=== PATIENT | male | born 1940 | race Caucasian/White ===

== ENCOUNTER 2018-02-16 21:45 | Inpatient (IN) | payer MEDICARE ==
--- NOTE | 2018-02-17 00:16 | ER Document Report ---
ED General - General Chief Complaint: Fever Stated Complaint: FEVER,WEAKNESS Time Seen by Provider: 02/17/18 00:03 Notes: Patient is a 77-year-old male that comes emergency department for chief complaint of weakness and fever. Patient states he has been weak since yesterday, son at bedside confirms this, son states that tonight patient had a "glazed overlook" and he took his temperature and found it was 101 F, this was about 4 hours prior to arrival. No cough, vomiting, patient has had 3 loose stools today, nonbloody, he denies abdominal pain. He denies headache or chest pain. Son states patient has acted a little bit confused and sluggish today but generally speaking he is still oriented. Past medical history includes on cephalexin prophylaxis for urinary tract infections, has BPH, also has vascular dementia, type 2 diabetes, CAD, NC with stents, and is on Plavix. TRAVEL OUTSIDE OF THE [place] IN LAST 30 DAYS: No - Related Data Allergies/Adverse Reactions: No Known Allergies Allergy (Unverified 02/17/18 03:58) Past Medical History - General Information source: Patient, Relative - Social History Smoking Status: Never Smoker Frequency of alcohol use: None Drug Abuse: None Lives with: Family Family History: Reviewed & Not Pertinent - Past Medical History Cardiac Medical History: Reports: Hx Coronary Artery Disease, Hx Heart Attack, Hx Hypertension Endocrine Medical History: Reports: Hx Diabetes Mellitus Type 2, Hx Hypothyroidism Renal/ Medical History: Reports: Hx Benign Prostatic Hyperplasia Past Surgical History: Reports: Hx Cardiac Catheterization - Immunizations Hx Diphtheria, Pertussis, Tetanus Vaccination: Yes Review of Systems - Review of Systems Constitutional: See HPI EENT: No symptoms reported Cardiovascular: No symptoms reported Respiratory: No symptoms reported Gastrointestinal: No symptoms reported Genitourinary: See HPI Male Genitourinary: No symptoms reported Musculoskeletal: No symptoms reported Skin: No symptoms reported Hematologic/Lymphatic: No symptoms reported Neurological/Psychological: No symptoms reported Physical Exam - Vital signs Vitals: Temp Pulse BP Pulse Ox 99.0 F 91 158/94 H 95 02/16/18 22:48 02/16/18 22:48 02/16/18 22:48 02/16/18 22:48 Interpretation: Normal - General General appearance: Appears well In distress: None - HEENT Head: Normocephalic, Atraumatic Eyes: Normal Conjunctiva: Normal Extraocular movements intact: Yes Eyelashes: Normal Pupils: PERRL Mouth/Lips: Normal Mucous membranes: Normal Pharynx: Normal Neck: Normal - Respiratory Respiratory status: No respiratory distress Chest status: Nontender Breath sounds: Normal Chest palpation: Normal - Cardiovascular Rhythm: Regular. No: Tachycardia Heart sounds: Normal auscultation, S1 appreciated, S2 appreciated Murmur: No - Abdominal Inspection: Normal Distension: No distension Bowel sounds: Normal Tenderness: Nontender. No: Tender, Guarding Organomegaly: No organomegaly - Back Back: Normal, Nontender - Extremities General upper extremity: Normal inspection, Nontender, Normal color, Normal ROM , Normal temperature General lower extremity: Normal inspection, Nontender, Normal color, Normal ROM , Normal temperature, Normal weight bearing. No: Lolis's sign - Neurological Neuro grossly intact: Yes Cognition: Normal Orientation: AAOx4 [place] Coma Scale Eye Opening: Spontaneous [place] Coma Scale Verbal: Oriented [place] Coma Scale Motor: Obeys Commands Lillian Coma Scale Total: 15 Speech: Normal Cranial nerves: Normal Cerebellar coordination: Normal Motor strength normal: LUE, RUE, LLE, RLE Additional motor exam normals: Equal inoculator Sensory: Normal - Psychological Associated symptoms: Normal affect, Normal mood - Skin Skin Temperature: Warm Skin Moisture: Dry Skin Color: Normal Course - Re-evaluation Re-evalutation: Patient is well-appearing on exam, he is oriented, no neurological deficits. Vital signs are unremarkable. Clear lungs, soft abdomen. Chest x-ray showing possible pneumonia, however patient has no pneumonia symptoms at all. Lactic acid is not elevated, no hypoxia, CBC unremarkable, chemistry unremarkable. Urinalysis does show urinary tract infection, culture placed, blood culture placed. Giving Levaquin. Discussed with patient and son at bedside. They state that whenever patient gets these infections along with a fever that he has to be admitted to the hospital or he does not improve. Patient is already on Keflex prophylaxis. They state the patient is too weak to walk and is very unsteady with a fall risk , patient was ambulated and he is unsteady on his feet although he can perform this with very close persistent assistance. They state they are uncomfortable going home at this time. Because of fever at home, UTI despite prophylaxis, questionable pneumonia, and unsteady gait patient will be discussed with hospitalist. Discussed with Dr. Loaiza, internal medicine, patient will be admitted to telemetry observation. - Vital Signs Vital signs: Temp Pulse Resp BP Pulse Ox 98.4 F 96 16 142/74 H 99 02/17/18 05:50 02/17/18 06:18 02/17/18 05:50 02/17/18 05:50 02/17/18 05:50 - Laboratory Result Diagrams: 02/17/18 06:03 02/17/18 06:03 Laboratory results interpreted by me: 02/17/18 02/17/18 02/17/18 00:20 00:20 01:23 Seg Neutrophils % 78.4 H Lymphocytes % 11.7 L Sodium 145.4 H Chloride 110 H BUN 21 H Creatinine 1.45 H Est GFR ( Amer) 57 L Est GFR (Non-Af Amer) 47 L Glucose 218 H Creatine Kinase 51 L Urine Protein 100 H Urine Glucose (UA) 50 H Urine Blood MODERATE H Ur Leukocyte Esterase LARGE H Discharge - Discharge Clinical Impression: Weakness Urinary tract infection Qualifiers: Urinary tract infection type: site unspecified Hematuria presence: without hematuria Qualified Code(s): N39.0 - Urinary tract infection, site not specified Fever Qualifiers: Fever type: unspecified Qualified Code(s): R50.9 - Fever, unspecified Condition: Stable Disposition: ADMITTED OBSERVATION Admitting Provider: Hospitalist Unit Admitted: Telemetry
[2018-02-17 00:37] LABS: ABSOLUTE EOSINOPHILS # (AUTO) 0.1 10^3/uL (0.0-0.6); ABSOLUTE LYMPHOCYTES (AUTO) 0.9 10^3/uL (0.5-4.7); ABSOLUTE MONOCYTES (AUTO) 0.6 10^3/uL (0.1-1.4); ABSOLUTE NEUT (AUTO) 5.9 10^3/uL (1.7-8.2); BASOPHILS % (AUTO) 0.4 % (0-2); EOSINOPHILS % (AUTO) 1.2 % (0-6); HEMATOCRIT 46.5 % (37.9-51.0); HEMOGLOBIN 15.6 g/dL (13.5-17.0); LYMPHOCYTES % (AUTO) 11.7 % (13-45); MEAN CORPUSCULAR HEMOGLOBIN 28.5 pg (27.0-33.4); MEAN CORPUSCULAR HGB CONC 33.6 g/dL (32.0-36.0); MEAN CORPUSCULAR VOLUME 85 fl (80-97); MONOCYTES % (AUTO) 8.3 % (3-13); PLATELET COUNT 328 10^3/uL (150-450); RED BLOOD COUNT 5.48 10^6/uL (4.35-5.55); RED CELL DISTRIBUTION WIDTH 13.6 % (11.5-14.0); SEGMENTED NEUTROPHILS % (AUTO) 78.4 % (42-78); TOTAL CELLS COUNTED % (AUTO) 100 %; WHITE BLOOD COUNT 7.5 10^3/uL (4.0-10.5)
[2018-02-17 00:44] LABS: INTERNATIONAL RATION (INR) 0.95; PROTHROMBIN TIME 13.4 SEC (11.4-15.4)
[2018-02-17 00:57] LABS: ALANINE AMINOTRANSFERASE 27 U/L (21-72); ALBUMIN 3.7 g/dL (3.5-5.0); ALKALINE PHOSPHATASE 93 U/L (38-126); ANION GAP 9 (5-19); ASPARTATE AMINO TRANSFERASE 18 U/L (17-59); BILIRUBIN,DIRECT 0.3 mg/dL (0.0-0.4); BILIRUBIN,TOTAL 0.3 mg/dL (0.2-1.3); BLOOD UREA NITROGEN 21 mg/dL (7-20); CARBON DIOXIDE 26 mmol/L (22-30); CHLORIDE 110 mmol/L (98-107); CREATINE KINASE 51 U/L (55-170); GLUCOSE 218 mg/dL (75-110); POTASSIUM 4.2 mmol/L (3.6-5.0); SODIUM 145.4 mmol/L (137-145); TOTAL PROTEIN 7.3 g/dL (6.3-8.2)
[2018-02-17 01:16] LABS: VENOUS BLOOD BASE EXCESS -0.9 mmol/L; VENOUS BLOOD HCO3 25.2 mmol/L (20-32); VENOUS BLOOD PCO2 47.4 mmHg (35-63); VENOUS BLOOD PH 7.34 (7.30-7.42)
--- NOTE | 2018-02-17 01:25 | RADIOLOGY REPORT (SQ) ---
EXAM DESCRIPTION: CT HEAD WITHOUT CLINICAL HISTORY: 77 years Male, confusion, on plavix COMPARISON: None. TECHNIQUE: No contrast. Coronal and sagittal reformat. This exam was performed according to our departmental dose-optimization program, which includes automated exposure control, adjustment of the mA and/or kV according to patient size and/or use of iterative reconstruction technique. FINDINGS: No hemorrhage or infarct. No mass, mass effect, or midline shift. Atherosclerosis. Mild cerebral volume loss. Moderate confluent white matter microangiopathy pattern.Brain and extra-axial structures appear otherwise intact. IMPRESSION: No acute findings.
[2018-02-17 01:26] LABS: CREATINE KINASE MB 0.32 ng/mL (<4.55)
[2018-02-17 01:27] LABS: TROPONIN I < 0.012 ng/mL
--- NOTE | 2018-02-17 01:32 | RADIOLOGY REPORT (SQ) ---
EXAM DESCRIPTION: CHEST SINGLE VIEW CLINICAL HISTORY: 77 years Male, fever, weakness COMPARISON: None. NUMBER OF VIEWS/TECHNIQUE: 1/AP LIMITATIONS: None. FINDINGS: Small patchiness of the lower right lung field and small right upper lobar patchiness. Normal cardiac silhouette. Mild osteoarthritis. IMPRESSION: Small multifocal right-sided pneumonia. Recommend CR/CT surveillance including at 7-12 weeks following initiation of clinically warranted therapy.
[2018-02-17 01:38] LABS: APPEARANCE,URINE CLOUDY; BILIRUBIN,URINE NEGATIVE (NEGATIVE); COLOR,URINE YELLOW; GLUCOSE, URINE 50 mg/dL (NEGATIVE); KETONES,URINE NEGATIVE (NEGATIVE); LEUKOCYTE ESTERASE,URINE LARGE (NEGATIVE); NITRITE,URINE NEGATIVE (NEGATIVE); PROTEIN,URINE 100 mg/dL (NEGATIVE); URINE SPECIFIC GRAVITY 1.012; UROBILINOGEN,URINE NEGATIVE mg/dL (<2.0)
[2018-02-17] MEDS ORDERED: LEVOFLOXACIN 500 MG/D5W RTU 500 MG/100 ML RTUPB IV ONE (02:20)
[2018-02-17] MEDS ORDERED: ONDANSETRON HCL INJ/PF 4 MG/2 ML SDV IV PRN (03:49)
[2018-02-17] MEDS ORDERED: ACETAMINOPHEN 325 MG TABLET PO PRN (03:49)
[2018-02-17] MEDS ORDERED: IPRATROPIUM/ALBUTEROL 0.5-2.5 MG/3 ML AMPUL NEB PRN (03:49)
[2018-02-17] MEDS ORDERED: GLUCAGON,HUMAN RECOMB 1 MG INJ IM PRN (03:53)
[2018-02-17] MEDS ORDERED: DEXTROSE 40% GEL 15 GM TUBE PO PRN ×2 (03:53)
[2018-02-17] MEDS ORDERED: DEXTROSE 50%-WATER 25 GM/50 ML DISP.SYRIN IV PRN ×2 (03:53)
[2018-02-17] MEDS ORDERED: HYDRALAZINE HCL INJ/PF 20 MG/1 ML SDV ONE (04:01)
[2018-02-17] MEDS: HYDRALAZINE HCL INJ/PF 20 MG/1 ML SDV IV PRN (04:16)
[2018-02-17] MEDS: NORMAL SALINE 1000 ML 1,000 ML IV SCH ×2 (04:17→12:25)
[2018-02-17 06:21] LABS: ABSOLUTE EOSINOPHILS # (AUTO) 0.1 10^3/uL (0.0-0.6); ABSOLUTE LYMPHOCYTES (AUTO) 1.2 10^3/uL (0.5-4.7); ABSOLUTE MONOCYTES (AUTO) 0.7 10^3/uL (0.1-1.4); ABSOLUTE NEUT (AUTO) 4.5 10^3/uL (1.7-8.2); BASOPHILS % (AUTO) 0.7 % (0-2); EOSINOPHILS % (AUTO) 1.4 % (0-6); HEMATOCRIT 42.7 % (37.9-51.0); HEMOGLOBIN 14.3 g/dL (13.5-17.0); MEAN CORPUSCULAR HEMOGLOBIN 28.1 pg (27.0-33.4); MEAN CORPUSCULAR HGB CONC 33.6 g/dL (32.0-36.0); MEAN CORPUSCULAR VOLUME 84 fl (80-97); PLATELET COUNT 285 10^3/uL (150-450); RED BLOOD COUNT 5.11 10^6/uL (4.35-5.55); RED CELL DISTRIBUTION WIDTH 13.4 % (11.5-14.0); SEGMENTED NEUTROPHILS % (AUTO) 68.9 % (42-78); TOTAL CELLS COUNTED % (AUTO) 100 %; WHITE BLOOD COUNT 6.6 10^3/uL (4.0-10.5)
[2018-02-17 06:38] LABS: ANION GAP 10 (5-19); BLOOD UREA NITROGEN 20 mg/dL (7-20); CALCIUM 8.7 mg/dL (8.4-10.2); CARBON DIOXIDE 26 mmol/L (22-30); CHLORIDE 108 mmol/L (98-107); GLUCOSE 162 mg/dL (75-110); SODIUM 143.6 mmol/L (137-145)
[2018-02-17] MEDS: HEPARIN SOD (PORCINE) 5,000 UNIT/ML 1 ML SYRINGE SUBCUT SCH ×3 (06:45→21:19)
--- NOTE | 2018-02-17 08:03 | EKG REPORT ---
SEVERITY:- BORDERLINE ECG - SINUS RHYTHM ATRIAL PREMATURE COMPLEX BORDERLINE T WAVE ABNORMALITIES BORDERLINE PROLONGED QT INTERVAL : Confirmed by: Reginaldo Luke MD 17-Feb-2018 08:02:59
[2018-02-17] MEDS: INSULIN LISPRO 100 UNIT/ML 3 ML VIAL SUBCUT PRN ×3 (12:18→21:47)
[2018-02-18] MEDS: HEPARIN SOD (PORCINE) 5,000 UNIT/ML 1 ML SYRINGE SUBCUT SCH ×3 (05:56→23:06)
[2018-02-18 06:09] LABS: ABSOLUTE BASOPHILS # (AUTO) 0.1 10^3/uL (0.0-0.2); ABSOLUTE EOSINOPHILS # (AUTO) 0.1 10^3/uL (0.0-0.6); ABSOLUTE LYMPHOCYTES (AUTO) 1.3 10^3/uL (0.5-4.7); ABSOLUTE NEUT (AUTO) 5.8 10^3/uL (1.7-8.2); BASOPHILS % (AUTO) 0.6 % (0-2); EOSINOPHILS % (AUTO) 1.7 % (0-6); HEMATOCRIT 40.4 % (37.9-51.0); HEMOGLOBIN 13.7 g/dL (13.5-17.0); LYMPHOCYTES % (AUTO) 16.2 % (13-45); MEAN CORPUSCULAR HEMOGLOBIN 28.6 pg (27.0-33.4); MEAN CORPUSCULAR HGB CONC 33.8 g/dL (32.0-36.0); MEAN CORPUSCULAR VOLUME 85 fl (80-97); MONOCYTES % (AUTO) 11.7 % (3-13); PLATELET COUNT 265 10^3/uL (150-450); RED BLOOD COUNT 4.78 10^6/uL (4.35-5.55); RED CELL DISTRIBUTION WIDTH 13.5 % (11.5-14.0); SEGMENTED NEUTROPHILS % (AUTO) 69.8 % (42-78); TOTAL CELLS COUNTED % (AUTO) 100 %; WHITE BLOOD COUNT 8.3 10^3/uL (4.0-10.5)
[2018-02-18 06:26] LABS: ANION GAP 10 (5-19); BLOOD UREA NITROGEN 18 mg/dL (7-20); CALCIUM 8.5 mg/dL (8.4-10.2); CARBON DIOXIDE 22 mmol/L (22-30); CHLORIDE 109 mmol/L (98-107); GLUCOSE 156 mg/dL (75-110); POTASSIUM 4.2 mmol/L (3.6-5.0); SODIUM 140.9 mmol/L (137-145)
[2018-02-18] MEDS: INSULIN LISPRO 100 UNIT/ML 3 ML VIAL SUBCUT PRN ×2 (12:34→23:06)
--- NOTE | 2018-02-18 18:31 | PDOC PROGRESS REPORT ---
Subjective Progress Note for:: 02/18/18 Subjective:: Patient admitted in the early mornings of 02/17/18 with UTI. Patient reports feeling still very weak. He has low-grade fever, has some urinary frequency, no dysuria, no abdominal pain, no nausea or vomiting. He has cough, minimally productive. Reason For Visit: UTI Physical Exam Vital Signs: Temp Pulse Resp BP Pulse Ox 99.5 F 73 16 142/74 H 95 02/18/18 15:35 02/18/18 15:35 02/18/18 15:35 02/18/18 15:35 02/18/18 15:35 Intake & Output 02/17/18 02/18/18 02/19/18 06:59 06:59 06:59 Intake Total 2832 621 Output Total 200 Balance 2632 621 GEN: NAD, well-developed, well-nourished CV: RRR, NL S1S2 LUNGS: CTA bilaterally ABDOMEN Soft, NT, +BS EXTERMITIES: No e/c/c NEURO: Alert, oriented to name, place Results Laboratory Results: 02/18/18 05:30 02/18/18 05:30 02/18/18 02/18/18 05:30 05:30 WBC 8.3 RBC 4.78 Hgb 13.7 Hct 40.4 MCV 85 MCH 28.6 MCHC 33.8 RDW 13.5 Plt Count 265 Seg Neutrophils % 69.8 Lymphocytes % 16.2 Monocytes % 11.7 Eosinophils % 1.7 Basophils % 0.6 Absolute Neutrophils 5.8 Absolute Lymphocytes 1.3 Absolute Monocytes 1.0 Absolute Eosinophils 0.1 Absolute Basophils 0.1 Sodium 140.9 Potassium 4.2 Chloride 109 H Carbon Dioxide 22 Anion Gap 10 BUN 18 Creatinine 1.36 H Est GFR ( Amer) > 60 Est GFR (Non-Af Amer) 51 L Glucose 156 H Calcium 8.5 Impressions: Chest X-Ray 02/17/18 00:13 IMPRESSION: Small multifocal right-sided pneumonia. Recommend CR/CT surveillance including at 7-12 weeks following initiation of clinically warranted therapy. Head CT 02/17/18 00:15 IMPRESSION: No acute findings. Assessment & Plan - Diagnosis (1) Urinary tract infection Qualifiers: Urinary tract infection type: site unspecified Hematuria presence: without hematuria Qualified Code(s): N39.0 - Urinary tract infection, site not specified Is this a current diagnosis for this admission?: Yes Plan: Urinalysis positive, white blood cells, although patient elderly. Will start Rocephin 1 g IV daily. Continue gentle IV fluid. (2) Community acquired bacterial pneumonia Is this a current diagnosis for this admission?: Yes Plan: This is suspected on recent chest x-ray above. Will add Zithromax to Rocephin to cover possible atypical in this elderly male. Follow-up blood cultures result. (3) Hypertension Is this a current diagnosis for this admission?: Yes Plan: Stable. (4) Weakness Is this a current diagnosis for this admission?: Yes Plan: Secondary to UTI and possible pneumonia. Will need PT/OT evaluation if continues.
[2018-02-18] MEDS ORDERED: CEFTRIAXONE 1 GM/D5W RTU 1 GM/50 ML RTUPB IV SCH (19:00)
[2018-02-18] MEDS: NORMAL SALINE 1000 ML 1,000 ML IV PRN (19:05)
[2018-02-18] MEDS ORDERED: CEFTRIAXONE SODIUM 1,000 MG in NORMAL SALINE 100 ML IV ONE (19:30)
[2018-02-18] MEDS: AZITHROMYCIN 500 MG in DEXTROSE 5%-WATER 250 ML IV SCH (23:07)
[2018-02-19 05:10] LABS: ABSOLUTE BASOPHILS # (AUTO) 0.1 10^3/uL (0.0-0.2); ABSOLUTE EOSINOPHILS # (AUTO) 0.2 10^3/uL (0.0-0.6); ABSOLUTE LYMPHOCYTES (AUTO) 1.6 10^3/uL (0.5-4.7); ABSOLUTE MONOCYTES (AUTO) 0.9 10^3/uL (0.1-1.4); ABSOLUTE NEUT (AUTO) 4.1 10^3/uL (1.7-8.2); BASOPHILS % (AUTO) 0.7 % (0-2); EOSINOPHILS % (AUTO) 3.3 % (0-6); HEMATOCRIT 39.1 % (37.9-51.0); HEMOGLOBIN 13.2 g/dL (13.5-17.0); LYMPHOCYTES % (AUTO) 23.9 % (13-45); MEAN CORPUSCULAR HEMOGLOBIN 28.2 pg (27.0-33.4); MEAN CORPUSCULAR HGB CONC 33.7 g/dL (32.0-36.0); MEAN CORPUSCULAR VOLUME 84 fl (80-97); MONOCYTES % (AUTO) 12.9 % (3-13); PLATELET COUNT 228 10^3/uL (150-450); RED BLOOD COUNT 4.67 10^6/uL (4.35-5.55); RED CELL DISTRIBUTION WIDTH 13.9 % (11.5-14.0); SEGMENTED NEUTROPHILS % (AUTO) 59.2 % (42-78); TOTAL CELLS COUNTED % (AUTO) 100 %; WHITE BLOOD COUNT 6.8 10^3/uL (4.0-10.5)
[2018-02-19 05:28] LABS: ANION GAP 9 (5-19); BLOOD UREA NITROGEN 24 mg/dL (7-20); CALCIUM 8.3 mg/dL (8.4-10.2); CARBON DIOXIDE 22 mmol/L (22-30); CHLORIDE 113 mmol/L (98-107); GLUCOSE 80 mg/dL (75-110); POTASSIUM 4.1 mmol/L (3.6-5.0); SODIUM 143.9 mmol/L (137-145)
[2018-02-19] MEDS: HEPARIN SOD (PORCINE) 5,000 UNIT/ML 1 ML SYRINGE SUBCUT SCH ×3 (05:44→21:31)
[2018-02-19] MEDS: NORMAL SALINE 1000 ML 1,000 ML IV PRN (12:00)
[2018-02-19] MEDS: CEFTRIAXONE SODIUM 1,000 MG in NORMAL SALINE 100 ML IV SCH (17:12)
--- NOTE | 2018-02-19 19:23 | PDOC PROGRESS REPORT ---
Subjective Progress Note for:: 02/19/18 Subjective:: Patient admitted in the early mornings of 02/17/18 with UTI and possible pneumonia. Patient reports feeling much better today. No more fever, urinary frequency has improved, no dysuria, no abdominal pain, no nausea or vomiting. He has cough, minimally productive. Reason For Visit: UTI Physical Exam Vital Signs: Temp Pulse Resp BP Pulse Ox 98.0 F 58 L 20 149/79 H 95 02/19/18 15:32 02/19/18 15:32 02/19/18 15:32 02/19/18 15:32 02/19/18 15:32 Intake & Output 02/18/18 02/19/18 02/20/18 06:59 06:59 06:59 Intake Total 2832 1811 1510 Output Total 200 Balance 2632 1811 1510 GEN: NAD, well-developed, well-nourished CV: RRR, NL S1S2 LUNGS: CTA bilaterally ABDOMEN Soft, NT, +BS EXTERMITIES: No e/c/c NEURO: Alert, oriented to name, place, no acute weakness Results Laboratory Results: 02/19/18 04:17 02/19/18 04:17 02/19/18 02/19/18 04:17 04:17 WBC 6.8 RBC 4.67 Hgb 13.2 L Hct 39.1 MCV 84 MCH 28.2 MCHC 33.7 RDW 13.9 Plt Count 228 Seg Neutrophils % 59.2 Lymphocytes % 23.9 Monocytes % 12.9 Eosinophils % 3.3 Basophils % 0.7 Absolute Neutrophils 4.1 Absolute Lymphocytes 1.6 Absolute Monocytes 0.9 Absolute Eosinophils 0.2 Absolute Basophils 0.1 Sodium 143.9 Potassium 4.1 Chloride 113 H Carbon Dioxide 22 Anion Gap 9 BUN 24 H Creatinine 1.49 H Est GFR ( Amer) 55 L Est GFR (Non-Af Amer) 46 L Glucose 80 Calcium 8.3 L Impressions: Chest X-Ray 02/17/18 00:13 IMPRESSION: Small multifocal right-sided pneumonia. Recommend CR/CT surveillance including at 7-12 weeks following initiation of clinically warranted therapy. Head CT 02/17/18 00:15 IMPRESSION: No acute findings. Assessment & Plan - Diagnosis (1) Urinary tract infection Qualifiers: Urinary tract infection type: site unspecified Hematuria presence: without hematuria Qualified Code(s): N39.0 - Urinary tract infection, site not specified Is this a current diagnosis for this admission?: Yes Plan: Urinalysis positive, normal white blood cells, although patient elderly. Will continue Rocephin 1 g IV daily. Continue gentle IV fluid. (2) Community acquired bacterial pneumonia Is this a current diagnosis for this admission?: Yes Plan: This is suspected on recent chest x-ray above. Will continue Zithromax and Rocephin to cover possible atypical in this elderly male. Follow-up blood cultures result. (3) Hypertension Is this a current diagnosis for this admission?: Yes Plan: Stable. (4) Weakness Is this a current diagnosis for this admission?: Yes Plan: Secondary to UTI and possible pneumonia. Now improved. - Time Time Spent with patient: 35 or more minutes
[2018-02-19] MEDS: AZITHROMYCIN 500 MG in DEXTROSE 5%-WATER 250 ML IV SCH (21:31)
[2018-02-20] MEDS: HYDRALAZINE HCL INJ/PF 20 MG/1 ML SDV IV PRN (00:34)
[2018-02-20] MEDS: HEPARIN SOD (PORCINE) 5,000 UNIT/ML 1 ML SYRINGE SUBCUT SCH ×3 (05:43→23:01)
[2018-02-20 07:06] LABS: ABSOLUTE EOSINOPHILS # (AUTO) 0.3 10^3/uL (0.0-0.6); ABSOLUTE LYMPHOCYTES (AUTO) 1.6 10^3/uL (0.5-4.7); ABSOLUTE MONOCYTES (AUTO) 0.8 10^3/uL (0.1-1.4); ABSOLUTE NEUT (AUTO) 5.3 10^3/uL (1.7-8.2); BASOPHILS % (AUTO) 0.6 % (0-2); EOSINOPHILS % (AUTO) 4.1 % (0-6); HEMATOCRIT 38.9 % (37.9-51.0); LYMPHOCYTES % (AUTO) 20.2 % (13-45); MEAN CORPUSCULAR HEMOGLOBIN 28.1 pg (27.0-33.4); MEAN CORPUSCULAR HGB CONC 33.3 g/dL (32.0-36.0); MEAN CORPUSCULAR VOLUME 85 fl (80-97); MONOCYTES % (AUTO) 9.8 % (3-13); PLATELET COUNT 270 10^3/uL (150-450); RED CELL DISTRIBUTION WIDTH 13.6 % (11.5-14.0); SEGMENTED NEUTROPHILS % (AUTO) 65.3 % (42-78); TOTAL CELLS COUNTED % (AUTO) 100 %; WHITE BLOOD COUNT 8.1 10^3/uL (4.0-10.5)
[2018-02-20 07:29] LABS: ANION GAP 9 (5-19); BLOOD UREA NITROGEN 19 mg/dL (7-20); CALCIUM 8.2 mg/dL (8.4-10.2); CARBON DIOXIDE 23 mmol/L (22-30); CHLORIDE 110 mmol/L (98-107); GLUCOSE 127 mg/dL (75-110); SODIUM 141.5 mmol/L (137-145)
[2018-02-20] MEDS: INSULIN LISPRO 100 UNIT/ML 3 ML VIAL SUBCUT PRN (15:50)
[2018-02-20] MEDS: CEFTRIAXONE SODIUM 1,000 MG in NORMAL SALINE 100 ML IV SCH (17:15)
--- NOTE | 2018-02-20 19:36 | PDOC PROGRESS REPORT ---
Subjective Progress Note for:: 02/20/18 Subjective:: Patient admitted with UTI and possible pneumonia. Patient reports feeling improving but feels very weak. No more fever, urinary frequency has improved, no dysuria, no abdominal pain, no nausea or vomiting. He has cough, minimally productive. Reason For Visit: UTI Physical Exam Vital Signs: Temp Pulse Resp BP Pulse Ox 98.1 F 59 L 16 143/70 H 95 02/20/18 16:10 02/20/18 16:10 02/20/18 16:10 02/20/18 16:10 02/20/18 16:10 Intake & Output 02/19/18 02/20/18 02/21/18 06:59 06:59 06:59 Intake Total 1812131 640 Output Total 100 125 Balance 1810 2031 515 Weight 84 kg GEN: NAD, well-developed, well-nourished CV: RRR, NL S1S2 LUNGS: CTA bilaterally ABDOMEN Soft, NT, +BS EXTERMITIES: No e/c/c NEURO: Alert, oriented to name, place, no acute weakness Results Laboratory Results: 02/20/18 05:39 02/20/18 05:39 02/20/18 02/20/18 05:39 05:39 WBC 8.1 RBC 4.60 Hgb 13.0 L Hct 38.9 MCV 85 MCH 28.1 MCHC 33.3 RDW 13.6 Plt Count 270 Seg Neutrophils % 65.3 Lymphocytes % 20.2 Monocytes % 9.8 Eosinophils % 4.1 Basophils % 0.6 Absolute Neutrophils 5.3 Absolute Lymphocytes 1.6 Absolute Monocytes 0.8 Absolute Eosinophils 0.3 Absolute Basophils 0.0 Sodium 141.5 Potassium 4.0 Chloride 110 H Carbon Dioxide 23 Anion Gap 9 BUN 19 Creatinine 1.18 Est GFR ( Amer) > 60 Est GFR (Non-Af Amer) > 60 Glucose 127 H Calcium 8.2 L Impressions: Chest X-Ray 02/17/18 00:13 IMPRESSION: Small multifocal right-sided pneumonia. Recommend CR/CT surveillance including at 7-12 weeks following initiation of clinically warranted therapy. Head CT 02/17/18 00:15 IMPRESSION: No acute findings. Assessment & Plan - Diagnosis (1) Urinary tract infection Qualifiers: Urinary tract infection type: site unspecified Hematuria presence: without hematuria Qualified Code(s): N39.0 - Urinary tract infection, site not specified Is this a current diagnosis for this admission?: Yes Plan: Urinalysis positive, but white blood cells normal, although patient elderly. Will continue Rocephin 1 g IV daily. Continue gentle IV fluid. (2) Community acquired bacterial pneumonia Is this a current diagnosis for this admission?: Yes Plan: This is suspected on chest x-ray above. Will continue Zithromax and Rocephin to cover possible atypical in this elderly male. Follow-up blood cultures result. Repeat chest x-ray PA/lateral in a.m. (3) Hypertension Is this a current diagnosis for this admission?: Yes Plan: Stable. (4) Weakness Is this a current diagnosis for this admission?: Yes Plan: Secondary to UTI and possible pneumonia. PT/OT consult.
[2018-02-20] MEDS: AZITHROMYCIN 500 MG in DEXTROSE 5%-WATER 250 ML IV SCH (23:01)
[2018-02-21] MEDS: HEPARIN SOD (PORCINE) 5,000 UNIT/ML 1 ML SYRINGE SUBCUT SCH ×3 (05:59→23:34)
--- NOTE | 2018-02-21 08:57 | RADIOLOGY REPORT (SQ) ---
EXAM DESCRIPTION: CHEST SINGLE VIEW COMPLETED DATE/TIME: 02/21/2018 8:46 am REASON FOR STUDY: productive cough COMPARISON: 02/17/2018 EXAM PARAMETERS: NUMBER OF VIEWS: One view. TECHNIQUE: Single frontal radiographic view of the chest acquired. RADIATION DOSE: NA LIMITATIONS: None. FINDINGS: LUNGS AND PLEURA: No opacities, masses or pneumothorax. No pleural effusion. MEDIASTINUM AND HILAR STRUCTURES: No masses. Contour normal. HEART AND VASCULAR STRUCTURES: Heart normal in size. Normal vasculature. BONES: No acute findings. HARDWARE: None in the chest. OTHER: No other significant finding. IMPRESSION: NO ACUTE RADIOGRAPHIC FINDING IN THE CHEST. TECHNICAL DOCUMENTATION: JOB ID: [id number] [employer]- All Rights Reserved Reading location - IP/workstation name: [email or web address]
[2018-02-21] MEDS: INSULIN LISPRO 100 UNIT/ML 3 ML VIAL SUBCUT PRN ×3 (12:08→17:26)
--- NOTE | 2018-02-21 14:57 | PDOC PROGRESS REPORT ---
Subjective Progress Note for:: 02/21/18 Subjective:: The patient is a 77-year-old male with a past medical history of hypertension, hypothyroidism, type 2 diabetes mellitus, and dementia who was admitted on for weakness, increased confusion, and UTI. The patient is seen on morning rounds with his son present. He is found resting in bed air. He states that he is feeling good today and is hopeful to be discharged to home in the near future. His son reports that his father has improved but remains weak and requests a physical therapy eval. The son states that he would be interested in SNF for short-term rehab versus home health physical therapy/occupational therapy to help improve his father's mobility. Prior to this admission, his father was ambulatory with a rolling walker and minimal assist to stand. The patient denies fever, chills, chest pain, palpitations, dyspnea, orthopnea, abdominal pain, nausea vomiting or diarrhea. Reason For Visit: UTI Physical Exam Vital Signs: Temp Pulse Resp BP Pulse Ox 98.1 F 64 16 159/78 H 94 02/21/18 11:30 02/21/18 14:00 02/21/18 11:30 02/21/18 11:30 02/21/18 11:30 Intake & Output 02/20/18 02/21/18 02/22/18 06:59 06:59 06:59 Intake Total 2132 705 Output Total 100 125 Balance 2032 580 Weight 84 kg 83.6 kg General appearance: PRESENT: no acute distress, hard of hearing, well-developed , well-nourished Head exam: PRESENT: atraumatic, normocephalic Eye exam: PRESENT: conjunctiva pink, EOMI, PERRLA. ABSENT: scleral icterus Ear exam: PRESENT: normal external ear exam Mouth exam: PRESENT: moist, tongue midline Neck exam: ABSENT: carotid bruit, JVD, lymphadenopathy, thyromegaly Respiratory exam: PRESENT: clear to auscultation avani, symmetrical, unlabored. ABSENT: rales, rhonchi, wheezes Cardiovascular exam: PRESENT: RRR, +S1, +S2. ABSENT: diastolic murmur, rubs, systolic murmur Pulses: PRESENT: normal dorsalis pedis pul Vascular exam: PRESENT: normal capillary refill GI/Abdominal exam: PRESENT: normal bowel sounds, soft. ABSENT: distended, guarding, mass, organolmegaly, rebound, tenderness Rectal exam: PRESENT: deferred Extremities exam: PRESENT: full ROM. ABSENT: calf tenderness, clubbing, pedal edema Neurological exam: PRESENT: alert, awake, oriented to person, oriented to place , CN II-XII grossly intact, other - Pleasantly confused and forgetful. ABSENT: oriented to time, oriented to situation, motor sensory deficit Psychiatric exam: PRESENT: appropriate affect, normal mood. ABSENT: homicidal ideation, suicidal ideation Skin exam: PRESENT: dry, intact, warm. ABSENT: cyanosis, rash Results Laboratory Results: 02/20/18 05:39 02/20/18 05:39 Impressions: Head CT 02/17/18 00:15 IMPRESSION: No acute findings. Chest X-Ray 02/21/18 00:00 IMPRESSION: NO ACUTE RADIOGRAPHIC FINDING IN THE CHEST. Assessment & Plan - Diagnosis (1) Urinary tract infection Qualifiers: Urinary tract infection type: site unspecified Hematuria presence: without hematuria Qualified Code(s): N39.0 - Urinary tract infection, site not specified Is this a current diagnosis for this admission?: Yes Plan: The patient was admitted with a low-grade temperature of 99, and report of weakness and increased confusion by family. Urinalysis positive for UTI. WBCs are normal. Blood cultures: 1 of 2 bottles with contaminant, second bottle has no growth to date. Repeat blood cultures have no growth to date. Urine culture positive for Viridans strep Patient was admitted to the medical floor. He was empirically placed on Rocephin and azithromycin. He is on day 3 of azithromycin and day 2 of Rocephin. Will continue IV antibiotics for now; anticipate discontinuing Rocephin tomorrow and completing a 5 day course of azithromycin. (2) Community acquired bacterial pneumonia Is this a current diagnosis for this admission?: Yes Plan: On admission, CXR showed small multifocal right-sided pneumonia. Repeat CXR this morning is normal. Cultures and antibiotics as above. As needed nebulizer treatments are available. Omental oxygen as needed to maintain oxygen saturations greater than 90%. Incentive spirometry to bedside. Encourage mobility (3) Hypertension Is this a current diagnosis for this admission?: Yes Plan: The patient's home medications are resumed. He is placed on a cardiac diet. Will monitor daily weights. (4) Weakness Is this a current diagnosis for this admission?: Yes Plan: PT/OT have been consulted. The patient's son is interested in SNF for short-term rehabilitation with goal of returning to home. - Time Time Spent with patient: 15-24 minutes Medications reviewed and adjusted accordingly: Yes Anticipated discharge: Acute Rehab Within: within 48 hours
[2018-02-21] MEDS: HYDRALAZINE HCL INJ/PF 20 MG/1 ML SDV IV PRN (16:03)
--- NOTE | 2018-02-21 17:05 | PDOC CONSULTATION ---
Consultation Consult Date: 02/21/18 Attending physician:: SANDRITA DURAN Consult reason:: Coronary artery disease, patient's family wanted patient to be followed by assistant men's lacrosse coach. History of Present Illness Admission Date/PCP: 02/17/18 15:15 Patient complains of: Fatigue, tiredness History of Present Illness: ROSANNA SHUKLA is a 77 year old male that comes emergency department for chief complaint of weakness and fever. Patient states he has been weak since yesterday, son at bedside confirms this, son states that tonight patient had a "glazed overlook" and he took his temperature and found it was 101 F, this was about 4 hours prior to arrival. No cough, vomiting, patient has had 3 loose stools today, nonbloody, he denies abdominal pain. He denies headache or chest pain. Son states patient has acted a little bit confused and sluggish today but generally speaking he is still oriented. Past medical history includes on cephalexin prophylaxis for urinary tract infections, has BPH, also has vascular dementia, type 2 diabetes, CAD, DE with stents, and is on Plavix. This history obtained by the ER physician was reviewed and confirmed. Patient' s son at bedside. Patient has underlying dementia therefore could not add much to the history. Patient had a general downhill course over the last few weeks. Patient able to feed himself, dress himself and is able to walk a few steps with her walker. Patient has not been noted to have any chest pain. He has been noted to be short of breath, fatigued and tired. There is no real syncope history. Past Medical History Cardiac Medical History: Reports: Coronary Artery Disease, Myocardial Infarction , Hypertension Endocrine Medical History: Reports: Diabetes Mellitus Type 2, Hypothyroidism Psychiatric Medical History: Denies: Depression Past Surgical History Past Surgical History: Reports: Cardiac Catheterization, Cholecystectomy - stents Social History Information Source: Relative Lives with: Family Smoking Status: Never Smoker Hx Recreational Drug Use: No Drugs: None Hx Prescription Drug Abuse: No - Advance Directive Resuscitation Status: Full Code Surrogate healthcare decision maker:: Patient son is the surrogate decision-maker Family History Family History: Hypertension Parental Family History Reviewed: Yes Children Family History Reviewed: Yes Sibling(s) Family History Reviewed.: Yes Medication/Allergy Home Medications: Amlodipine Besylate [Norvasc 10 mg Tablet] 10 mg PO DAILY 02/17/18 Carvedilol [Coreg 12.5 mg Tablet] 12.5 mg PO Q12 02/17/18 Clopidogrel Bisulfate [Plavix 75 mg Tablet] 75 mg PO DAILY 02/17/18 Donepezil HCl [Aricept 5 mg Tablet] 5 mg PO QHS 02/17/18 Enalapril Maleate [Vasotec 20 mg Tablet] 20 mg PO DAILY 02/17/18 Furosemide [Lasix 20 mg Tablet] 20 mg PO QAM 02/17/18 Glimepiride [Amaryl] 2 mg PO QAM 02/17/18 Levothyroxine Sodium [Synthroid 0.025 mg Tablet] 25 mcg PO Q6AM 02/17/18 Potassium Chloride [Klor-Con 10 Meq Tablet.sa] 10 meq PO DAILY 02/17/18 Pravastatin Sodium [Pravachol] 80 mg PO QHS 02/17/18 Allergies/Adverse Reactions: No Known Allergies Allergy (Unverified 02/17/18 03:58) Review of Systems ROS unobtainable: Due to mental status Physical Exam Vital Signs: Temp Pulse Resp BP Pulse Ox 98.4 F 63 16 164/85 H 95 02/21/18 15:49 02/21/18 15:49 02/21/18 15:49 02/21/18 15:49 02/21/18 15:49 Intake & Output 02/20/18 02/21/18 02/22/18 06:59 06:59 06:59 Intake Total 2132 705 0 Output Total 100 125 Balance 2032 580 0 Weight 84 kg 83.6 kg Exam: GENERAL: well-nourished and in no acute distress. Patient is alert but not oriented to place time or person. HEAD: Atraumatic, normocephalic. EYES: Pupils equal round and reactive to light, extraocular movements intact, sclera anicteric, conjunctiva are normal. ENT: TMs normal, nares patent, oropharynx clear without exudates. Moist mucous membranes. No oral ulcerations or bleeding gums noted NECK: supple without lymphadenopathy or JVD. Trachea is central. No cervical or axillary lymphadenopathy noted. Carotids are 2+ LUNGS: Breath sounds bibasilar fine crackles at bases. No significant dullness noted. CHEST: Palpation of chest wall shows no significant chest wall tenderness. HEART: [place] [employer]GER, No PSH, 2/6 CHUCK aortic area, 1/6 romo systolic murmur mitral area, rubs or gallops. ABDOMEN: Soft, no significant tenderness appreciated, normoactive bowel sounds. No guarding, no rebound. No rigidity noted . No masses appreciated. EXTREMITIES: Pedal pulses are 1-2+, no calf tenderness noted, Trace + pedal edema noted. No clubbing or cyanosis. NEUROLOGICAL: Patient is alert but is not able to participate in neurological exam because of patient's current mental status. Patient however able to move all 4 extremities. PSYCH: Patient cannot participate in a neurologic and psych exam because of the patient's current mental status SKIN: No significant ecchymosis, rash, ulcerations or signs of pruritus noted. MUSCULOSKELETAL EXAM: No significant joint swelling noted. Results Laboratory Results: 02/20/18 05:39 02/20/18 05:39 EKG Comments: Showed sinus rhythm, minor nonspecific T-wave changes. Impressions: Head CT 02/17/18 00:15 IMPRESSION: No acute findings. Chest X-Ray 02/21/18 00:00 IMPRESSION: NO ACUTE RADIOGRAPHIC FINDING IN THE CHEST. Assessment & Plan - Diagnosis (1) Coronary artery disease Qualifiers: Coronary Disease-Associated Artery/Lesion type: [place] artery [place] vs. transplanted heart: [place] heart Associated angina: angina presence unspecified Qualified Code(s): I25.10 - Atherosclerotic heart disease of [place] coronary artery without angina pectoris Is this a current diagnosis for this admission?: Yes (2) Dyspnea Qualifiers: Dyspnea type: unspecified Qualified Code(s): R06.00 - Dyspnea, unspecified Is this a current diagnosis for this admission?: Yes (3) Fever Qualifiers: Fever type: unspecified Qualified Code(s): R50.9 - Fever, unspecified (4) Hypertension Qualifiers: Hypertension type: essential hypertension Qualified Code(s): I10 - Essential (primary) hypertension Is this a current diagnosis for this admission?: Yes (5) Urinary tract infection Qualifiers: Urinary tract infection type: site unspecified Hematuria presence: without hematuria Qualified Code(s): N39.0 - Urinary tract infection, site not specified Is this a current diagnosis for this admission?: Yes (6) Community acquired bacterial pneumonia Is this a current diagnosis for this admission?: Yes (7) Dyslipidemia Is this a current diagnosis for this admission?: Yes (8) Diabetes Qualifiers: Diabetes mellitus type: type 2 Diabetes mellitus snf insulin use: unspecified snf insulin use status Diabetes mellitus complication status : with unspecified complications Qualified Code(s): E11.8 - Type 2 diabetes mellitus with unspecified complications Is this a current diagnosis for this admission?: Yes - Notes Notes: Coronary artery disease: Patient currently seems symptomatically stable. Patient's medical regimen reviewed and is noted to be satisfactory. No medication changes performed today. Dyspnea: Possibly related to pneumonia. Because of multifocal opacities on admission EKG, will obtain a BNP level to rule out any CHF. Fever: Currently could be related to UTI versus pneumonia. Patient on antibiotic therapy. Hypertension: Currently blood pressure well controlled. Blood pressure goal is 140/90 or less but could be more liberal in this elderly patient with dementia. Hyperlipidemia: Continue Pravachol therapy. Community-acquired pneumonia: Continue with antibiotic therapy. Discussed that patient would not be a candidate for ischemia evaluation due to dementia unless patient has significant chest pains which are uncontrolled with medical management. Patient son was in the room and this was discussed. - Time Time Spent: 30 to 50 Minutes - CODE STATUS was discussed, patient remains full code. Surrogate decision-maker patient's son. Multiple medical problems were addressed. More than 50% of the time spent coordinating care, discussing management plans with involved caregivers. Management plans discussed with involved personnels. Medical decision making was of moderate to high complexity , patient's has multiple comorbidities. Medications reviewed and adjusted accordingly: Yes
[2018-02-21] MEDS: CEFTRIAXONE SODIUM 1,000 MG in NORMAL SALINE 100 ML IV SCH (17:26)
[2018-02-21] MEDS: CARVEDILOL 12.5 MG TABLET PO SCH (23:34)
[2018-02-21] MEDS: AZITHROMYCIN 500 MG in DEXTROSE 5%-WATER 250 ML IV SCH (23:35)
[2018-02-22] MEDS: HYDRALAZINE HCL INJ/PF 20 MG/1 ML SDV IV PRN (00:52)
[2018-02-22] MEDS: LEVOTHYROXINE SODIUM 0.025 MG TABLET PO SCH (06:28)
[2018-02-22] MEDS: HEPARIN SOD (PORCINE) 5,000 UNIT/ML 1 ML SYRINGE SUBCUT SCH ×3 (06:28→21:52)
--- NOTE | 2018-02-22 09:46 | EKG REPORT ---
SEVERITY:- BORDERLINE ECG - SINUS RHYTHM BORDERLINE PROLONGED QT INTERVAL : Confirmed by: Edwina Carver 22-Feb-2018 09:46:07
[2018-02-22] MEDS ORDERED: (PENDING PHARMACY ID) (Enalapril Maleate [Vasotec 20 Mg Tablet] 20 MG) PO SCH (10:00)
[2018-02-22] MEDS: CLOPIDOGREL BISULFATE 75 MG TABLET PO SCH (10:19)
[2018-02-22] MEDS: FUROSEMIDE 20 MG TABLET PO SCH (10:20)
[2018-02-22] MEDS: POTASSIUM CHLORIDE 10 MEQ TABLET.SA PO SCH (10:20)
[2018-02-22] MEDS: AMLODIPINE BESYLATE 10 MG TABLET PO SCH (10:20)
[2018-02-22] MEDS: ENALAPRIL MALEATE 10 MG TABLET PO SCH (10:20)
[2018-02-22] MEDS: CARVEDILOL 12.5 MG TABLET PO SCH ×2 (10:21→21:53)
--- NOTE | 2018-02-22 15:04 | PDOC PROGRESS REPORT ---
Subjective Progress Note for:: 02/22/18 Subjective:: The patient is a 77-year-old male with a past medical history of hypertension, hypothyroidism, type 2 diabetes mellitus, and dementia who was admitted on for weakness, increased confusion, and UTI. The patient is seen on morning rounds; his son is not present at this time. He is found resting in bed on room air. He states that he is feeling well today. The patient denies fever, chills, chest pain, palpitations, dyspnea, orthopnea, abdominal pain, nausea vomiting or diarrhea. He has no new questions or concerns. Nursing has raised some concerns regarding safe discharge. They state that they have overheard the patient's son on the phone discussing impending eviction from their home. Reason For Visit: UTI Physical Exam Vital Signs: Temp Pulse Resp BP Pulse Ox 98.7 F 59 L 16 157/76 H 94 02/22/18 12:07 02/22/18 12:07 02/22/18 12:07 02/22/18 12:07 02/22/18 12:07 Intake & Output 02/21/18 02/22/18 02/23/18 06:59 06:59 06:59 Intake Total 705 380 0 Output Total 125 Balance 580 380 0 Weight 83.6 kg 85 kg General appearance: PRESENT: no acute distress, cooperative, hard of hearing, well-developed, well-nourished, other - Overweight Head exam: PRESENT: atraumatic, normocephalic Eye exam: PRESENT: conjunctiva pink, EOMI, PERRLA. ABSENT: scleral icterus Ear exam: PRESENT: normal external ear exam Mouth exam: PRESENT: moist, tongue midline Neck exam: ABSENT: carotid bruit, JVD, lymphadenopathy, thyromegaly Respiratory exam: PRESENT: clear to auscultation avani, symmetrical, unlabored. ABSENT: rales, rhonchi, wheezes Cardiovascular exam: PRESENT: RRR, +S1, +S2. ABSENT: diastolic murmur, rubs, systolic murmur Pulses: PRESENT: normal dorsalis pedis pul Vascular exam: PRESENT: normal capillary refill GI/Abdominal exam: PRESENT: normal bowel sounds, soft. ABSENT: distended, guarding, mass, organolmegaly, rebound, tenderness Rectal exam: PRESENT: deferred Extremities exam: PRESENT: full ROM. ABSENT: calf tenderness, clubbing, pedal edema Neurological exam: PRESENT: alert, awake, oriented to person, oriented to situation, CN II-XII grossly intact, other - Pleasantly confused. ABSENT: oriented to place - Mel, oriented to time - President Willian, motor sensory deficit Psychiatric exam: PRESENT: appropriate affect, normal mood. ABSENT: homicidal ideation, suicidal ideation Skin exam: PRESENT: dry, intact, warm. ABSENT: cyanosis, rash Results Laboratory Results: 02/20/18 05:39 02/20/18 05:39 02/21/18 17:33 NT-Pro-B Natriuret Pep 517 H Impressions: Head CT 02/17/18 00:15 IMPRESSION: No acute findings. Chest X-Ray 02/21/18 00:00 IMPRESSION: NO ACUTE RADIOGRAPHIC FINDING IN THE CHEST. Assessment & Plan - Diagnosis (1) Urinary tract infection Qualifiers: Urinary tract infection type: site unspecified Hematuria presence: without hematuria Qualified Code(s): N39.0 - Urinary tract infection, site not specified Is this a current diagnosis for this admission?: Yes Plan: The patient was admitted with a low-grade temperature of 99, and report of weakness and increased confusion by family. Urinalysis positive for UTI. WBCs are normal. Blood cultures: 1 of 2 bottles with contaminant, second bottle has no growth to date. Repeat blood cultures have no growth to date. Urine culture positive for Viridans strep (likely skin ismael) Patient was admitted to the medical floor. He is on day 4 of azithromycin and day 3 of Rocephin. As the patient has been afebrile and WBCs are normal, we will discontinue Rocephin after he received his third dose this afternoon. We will continue azithromycin for a total of 5 day course of therapy. (2) Community acquired bacterial pneumonia Is this a current diagnosis for this admission?: Yes Plan: On admission, CXR showed small multifocal right-sided pneumonia. Repeat CXR this morning is normal. Cultures and antibiotics as above. As needed nebulizer treatments are available. Supplemental oxygen as needed to maintain oxygen saturations greater than 90%. Incentive spirometry to bedside. Encourage mobility (3) Hypertension Qualifiers: Hypertension type: essential hypertension Qualified Code(s): I10 - Essential (primary) hypertension Is this a current diagnosis for this admission?: Yes Plan: The patient's home medications are resumed. He is placed on a cardiac diet. Will monitor daily weights. Cardiology has been consulted; appreciate their evaluation recommendations. (4) Weakness Is this a current diagnosis for this admission?: Yes Plan: PT/OT have been consulted. The patient's son is interested in SNF for short-term rehabilitation with goal of returning to home. (5) Diabetes Qualifiers: Diabetes mellitus type: type 2 Diabetes mellitus watermelon inspector insulin use: unspecified watermelon inspector insulin use status Diabetes mellitus complication status : with unspecified complications Qualified Code(s): E11.8 - Type 2 diabetes mellitus with unspecified complications Is this a current diagnosis for this admission?: Yes Plan: Will continue the patient's Amaryl. Consistent carb diet with Accu-Cheks before meals and at bedtime. Humalog for sliding scale coverage. - Time Time Spent with patient: 15-24 minutes Anticipated discharge: Acute Rehab Within: when bed available
[2018-02-22] MEDS ORDERED: GLIMEPIRIDE 1 MG TABLET PO ONE (16:30)
[2018-02-22] MEDS: CEFTRIAXONE SODIUM 1,000 MG in NORMAL SALINE 100 ML IV SCH (19:20)
[2018-02-22] MEDS: AZITHROMYCIN 500 MG in DEXTROSE 5%-WATER 250 ML IV SCH (21:53)
[2018-02-23] MEDS: HEPARIN SOD (PORCINE) 5,000 UNIT/ML 1 ML SYRINGE SUBCUT SCH ×3 (06:20→22:10)
[2018-02-23] MEDS: LEVOTHYROXINE SODIUM 0.025 MG TABLET PO SCH (06:29)
[2018-02-23] MEDS: CLOPIDOGREL BISULFATE 75 MG TABLET PO SCH (09:06)
[2018-02-23] MEDS: POTASSIUM CHLORIDE 10 MEQ TABLET.SA PO SCH (09:06)
[2018-02-23] MEDS: CARVEDILOL 12.5 MG TABLET PO SCH ×2 (09:07→22:10)
[2018-02-23] MEDS: GLIMEPIRIDE 1 MG TABLET PO SCH (09:08)
[2018-02-23] MEDS: ENALAPRIL MALEATE 10 MG TABLET PO SCH (09:09)
[2018-02-23] MEDS: FUROSEMIDE 20 MG TABLET PO SCH (09:09)
[2018-02-23] MEDS: AMLODIPINE BESYLATE 10 MG TABLET PO SCH (09:09)
[2018-02-23] MEDS: INSULIN LISPRO 100 UNIT/ML 3 ML VIAL SUBCUT PRN (11:57)
--- NOTE | 2018-02-23 13:43 | XCELERA REPORT ---
[address] [address] Transthoracic Echocardiogram Report Name: ROSANNA SHUKLA Age: 77 yrs Gender: Male : 1940 Patient Status: Inpatient Patient Location: [address] [place] [address] Study Date: 02/23/2018 09:45 AM Height: 68 in Weight: 184 lb BSA: 2.0 m2 Procedure: A complete two-dimensional transthoracic echocardiogram was performed (2D, M-mode, spectral and color flow Doppler). The study was technically difficult with many images being suboptimal in quality. Reason For Study: CAD, dyspnea Ordering Physician: EDWINA DELEON Performed By: Vianney Gagnon Interpretation Summary The study was technically difficult with many images being suboptimal in quality. Left ventricular systolic function is normal. Doppler measurements suggest pseudonormalized left ventricular relaxation, which is associated with grade II/IV or mild to moderate diastolic dysfunction There is borderline concentric left ventricular hypertrophy. The left ventricle is grossly normal size. Regional wall motion abnormalities cannot be excluded due to limited visualization. The right ventricle is grossly normal size. The right atrium is normal in size The left atrial size is normal. There is a trace amount of mitral regurgitation There is no mitral valve stenosis. There is a mild amount of aortic regurgitation There is no aortic valve stenosis There is a trace or physiologic amount of tricuspid regurgitation Tricuspid regurgitation jet envelope not well defined to measure RV systolic pressure accurately. The aortic root is not well visualized. The inferior vena cava was not well visualized There is no pericardial effusion. MMode/2D Measurements & Calculations RVDd: 3.3 cm LVIDd: 5.2 cm FS: 28.3 % Ao root diam: 3.4 cm IVSd: 1.0 cm LVIDs: 3.7 cm EDV(Teich): 128.2 ml LVPWd: 1.0 cm ESV(Teich): 58.5 ml Ao root area: 9.3 cm2 EF(Teich): 54.4 % Doppler Measurements & Calculations MV E max fred: MV dec slope: Ao V2 max: AI max fred: 64.4 cm/sec 126.5 cm/sec 441.3 cm/sec MV A max fred: 247.0 cm/sec2 Ao max PG: AI max P.2 cm/sec MV dec time: 6.4 mmHg 77.9 mmHg MV E/A: 0.69 0.26 sec AI dec slope: 188.2 cm/sec2 AI P1/2t: 686.7 msec LV V1 max PG: PA V2 max: TR max fred: 4.4 mmHg 75.4 cm/sec 204.1 cm/sec LV V1 max: PA max P.3 mmHg TR max P.0 cm/sec 16.7 mmHg Left Ventricle The left ventricle is grossly normal size. There is borderline concentric left ventricular hypertrophy. Left ventricular systolic function is normal. Doppler measurements suggest pseudonormalized left ventricular relaxation, which is associated with grade II/IV or mild to moderate diastolic dysfunction. Regional wall motion abnormalities cannot be excluded due to limited visualization. Right Ventricle The right ventricle is grossly normal size. Atria The right atrium is normal in size. The left atrial size is normal. Interarterial septum not well visualized and not well dopplered. Cannot comment on ASD/PFO presence. Mitral Valve The mitral valve leaflets are sclerotic, but show no functional abnormalities. There is no mitral valve stenosis. There is a trace amount of mitral regurgitation. Aortic Valve The aortic valve is not well visualized secondary to technical limitations. There is no aortic valve stenosis. There is a mild amount of aortic regurgitation. Tricuspid Valve The tricuspid valve is not well visualized secondary to technical limitations. There is no tricuspid stenosis. There is a trace or physiologic amount of tricuspid regurgitation. Tricuspid regurgitation jet envelope not well defined to measure RV systolic pressure accurately. Pulmonic Valve The pulmonic valve is not well visualized. Great Vessels The aortic root is not well visualized. The inferior vena cava was not well visualized. Effusions There is no pericardial effusion. : EDWINA DELEON > Edwina Deleon
--- NOTE | 2018-02-23 18:21 | PDOC PROGRESS REPORT ---
Subjective Progress Note for:: 02/23/18 Subjective:: ROSANNA SHUKLA is a 77 year old male with a PMH of HTN, hypothyroidism, type 2 diabetes mellitus, and dementia who was admitted on02/17/2018 for weakness, increased confusion, and UTI. The patient was seen this morning on rounds following his echocardiogram. He is found resting in bed on room air. He states that he is feeling very well today, he has no complaints. Reason For Visit: UTI Physical Exam Vital Signs: Temp Pulse Resp BP Pulse Ox 97.9 F 60 20 130/72 H 97 02/23/18 16:00 02/23/18 16:00 02/23/18 16:00 02/23/18 16:00 02/23/18 16:00 Intake & Output 02/22/18 02/23/18 02/24/18 06:59 06:59 06:59 Intake Total 380 1263 840 Balance 380 1263 840 Weight 85 kg 83 kg Results Laboratory Results: 02/20/18 05:39 02/20/18 05:39 02/21/18 17:33 NT-Pro-B Natriuret Pep 517 H Impressions: Head CT 02/17/18 00:15 IMPRESSION: No acute findings. Chest X-Ray 02/21/18 00:00 IMPRESSION: NO ACUTE RADIOGRAPHIC FINDING IN THE CHEST. Assessment & Plan - Diagnosis (1) Urinary tract infection Qualifiers: Urinary tract infection type: site unspecified Hematuria presence: without hematuria Qualified Code(s): N39.0 - Urinary tract infection, site not specified Is this a current diagnosis for this admission?: Yes Plan: The patient was admitted with a low-grade fever, family reported weakness and increased confusion. Urinalysis positive for UTI. WBCs are normal. Blood cultures: 1 of 2 bottles with contaminant, second bottle has no growth to date Repeat blood cultures no growth to date Urine culture positive for viridans strep -possibly skin ismael Admit to medical floor Patient has completed eighth 3 day course of Rocephin, and and will complete his 5th day of azithromycin today. Antibiotic regimen complete after today. (2) Community acquired bacterial pneumonia Is this a current diagnosis for this admission?: Yes Plan: CXR upon admission showed small multifocal right-sided pneumonia. Repeat CXR yesterday is normal. Cultures and antibiotics as above. As needed nebulizer treatments Incentive spirometry to bedside. Encourage mobility. (3) Hypertension Qualifiers: Hypertension type: essential hypertension Qualified Code(s): I10 - Essential (primary) hypertension Is this a current diagnosis for this admission?: Yes Plan: Resume home medications. Tolerating cardiac diet. Monitor daily weights. Cardiology consulted. Echocardiogram completed today -results pending. (4) Weakness Is this a current diagnosis for this admission?: Yes Plan: PT/OT have been consulted. Patient's son would like to send patient to acute rehab/SNF with the goal of returning home (5) Diabetes Qualifiers: Diabetes mellitus type: type 2 Diabetes mellitus transaction advisory services manager insulin use: unspecified transaction advisory services manager insulin use status Diabetes mellitus complication status : with unspecified complications Qualified Code(s): E11.8 - Type 2 diabetes mellitus with unspecified complications Is this a current diagnosis for this admission?: Yes Plan: Continue Amaryl Consistent carb diet. Accu-Cheks before meals at bedtime. Humalog for sliding scale coverage - Time Time Spent with patient: 15-24 minutes Anticipated discharge: SNF, Acute Rehab Within: within 48 hours - Inpatient Certification Based on my medical assessment, after consideration of the patient's comorbidities, presenting symptoms, or acuity I expect that the services needed warrant INPATIENT care.: Yes I certify that my determination is in accordance with my understanding of Medicare's requirements for reasonable and necessary INPATIENT services [42 CFR 412.3e].: Yes Medical Necessity: Risk of Complication if Not Cared For in Hospital - Plan Summary Plan Summary: Discharge to SNF/acute rehab
[2018-02-23] MEDS: AZITHROMYCIN 500 MG in DEXTROSE 5%-WATER 250 ML IV SCH (22:10)
[2018-02-24] MEDS: HEPARIN SOD (PORCINE) 5,000 UNIT/ML 1 ML SYRINGE SUBCUT SCH ×3 (06:19→21:23)
[2018-02-24] MEDS: LEVOTHYROXINE SODIUM 0.025 MG TABLET PO SCH (06:19)
[2018-02-24] MEDS: GLIMEPIRIDE 1 MG TABLET PO SCH (08:33)
[2018-02-24] MEDS: FUROSEMIDE 20 MG TABLET PO SCH (08:33)
[2018-02-24] MEDS: CLOPIDOGREL BISULFATE 75 MG TABLET PO SCH (09:42)
[2018-02-24] MEDS: AMLODIPINE BESYLATE 10 MG TABLET PO SCH (09:42)
[2018-02-24] MEDS: POTASSIUM CHLORIDE 10 MEQ TABLET.SA PO SCH (09:42)
[2018-02-24] MEDS: ENALAPRIL MALEATE 10 MG TABLET PO SCH (09:43)
[2018-02-24] MEDS: CARVEDILOL 12.5 MG TABLET PO SCH ×2 (09:43→21:23)
--- NOTE | 2018-02-24 19:05 | PDOC H&P ---
History of Present Illness Admission Date/PCP: 02/17/18 15:15 Patient complains of: Fever and weakness History of Present Illness: ROSANNA SHUKLA is a 77 year old male with a past medical history of vascular dementia, diabetes, coronary artery disease status post stenting of unknown artery, BPH with recurrent UTI. He presents with 48 hours of fatigue and 12 hours of loose stools followed by 4 hours of fever of 101.0. Patient denies dysuria, polyuria, abdominal pain, shortness of breath, cough, chest pain or palpitations. In the emergency room he is found to have an x-ray suggestive of pneumonia versus atelectasis and a urinalysis suggestive of UTI versus colonization. He receives empiric antibiotics and IV fluid challenge referred to the hospitalist for admission. Past Medical History Cardiac Medical History: Reports: Coronary Artery Disease, Myocardial Infarction , Hypertension Endocrine Medical History: Reports: Diabetes Mellitus Type 2, Hypothyroidism Psychiatric Medical History: Denies: Depression Past Surgical History Past Surgical History: Reports: Cardiac Catheterization, Cholecystectomy - stents Social History Information Source: Patient, Relative, [facility] Records Lives with: Family Smoking Status: Never Smoker Hx Recreational Drug Use: No Drugs: None Hx Prescription Drug Abuse: No - Advance Directive Resuscitation Status: Full Code Family History Family History: Hypertension Parental Family History Reviewed: Yes Children Family History Reviewed: Yes Sibling(s) Family History Reviewed.: Yes Medication/Allergy Home Medications: Amlodipine Besylate [Norvasc 10 mg Tablet] 10 mg PO DAILY 02/17/18 Carvedilol [Coreg 12.5 mg Tablet] 12.5 mg PO Q12 02/17/18 Clopidogrel Bisulfate [Plavix 75 mg Tablet] 75 mg PO DAILY 02/17/18 Donepezil HCl [Aricept 5 mg Tablet] 5 mg PO QHS 02/17/18 Enalapril Maleate [Vasotec 20 mg Tablet] 20 mg PO DAILY 02/17/18 Furosemide [Lasix 20 mg Tablet] 20 mg PO QAM 02/17/18 Glimepiride [Amaryl] 2 mg PO QAM 02/17/18 Levothyroxine Sodium [Synthroid 0.025 mg Tablet] 25 mcg PO Q6AM 02/17/18 Potassium Chloride [Klor-Con 10 Meq Tablet.sa] 10 meq PO DAILY 02/17/18 Pravastatin Sodium [Pravachol] 80 mg PO QHS 02/17/18 Allergies/Adverse Reactions: No Known Allergies Allergy (Unverified 02/17/18 03:58) Review of Systems Constitutional: ABSENT: chills, fever(s), headache(s), weight gain, weight loss Eyes: ABSENT: visual disturbances Ears: ABSENT: hearing changes Cardiovascular: ABSENT: chest pain, dyspnea on exertion, edema, orthropnea, palpitations Respiratory: ABSENT: cough, hemoptysis Gastrointestinal: PRESENT: constipation, diarrhea. ABSENT: abdominal pain, hematemesis, hematochezia, nausea, vomiting Genitourinary: ABSENT: dysuria, hematuria Musculoskeletal: ABSENT: joint swelling Integumentary: ABSENT: rash, wounds Neurological: ABSENT: abnormal gait, abnormal speech, confusion, dizziness, focal weakness, syncope Psychiatric: ABSENT: anxiety, depression, homidical ideation, suicidal ideation Endocrine: ABSENT: cold intolerance, heat intolerance, polydipsia, polyuria Hematologic/Lymphatic: ABSENT: easy bleeding, easy bruising Physical Exam Vital Signs: Temp Pulse Resp BP Pulse Ox 98.3 F 62 16 140/85 H 97 02/24/18 16:00 02/24/18 16:00 02/24/18 16:00 02/24/18 16:00 02/24/18 16:00 Intake & Output 02/23/18 02/24/18 02/25/18 11:59 11:59 11:59 Intake Total 1263 1242 10 Balance 1263 1242 10 Weight 83 kg 82.9 kg General appearance: PRESENT: cooperative, disheveled, mild distress, well- developed, well-nourished Head exam: PRESENT: atraumatic, normocephalic Eye exam: PRESENT: conjunctiva pink, EOMI, PERRLA. ABSENT: scleral icterus Ear exam: PRESENT: normal external ear exam Mouth exam: PRESENT: moist, tongue midline Neck exam: ABSENT: carotid bruit, JVD, lymphadenopathy, thyromegaly Respiratory exam: PRESENT: clear to auscultation avani, decreased breath sounds. ABSENT: rales, rhonchi, tachypnea, wheezes Cardiovascular exam: PRESENT: RRR. ABSENT: diastolic murmur, rubs, systolic murmur Pulses: PRESENT: normal dorsalis pedis pul Vascular exam: PRESENT: normal capillary refill GI/Abdominal exam: PRESENT: normal bowel sounds, soft. ABSENT: distended, guarding, mass, organolmegaly, rebound, tenderness Rectal exam: PRESENT: deferred Extremities exam: PRESENT: full ROM. ABSENT: calf tenderness, clubbing, pedal edema Neurological exam: PRESENT: alert, awake, oriented to person, oriented to place , oriented to time, oriented to situation, CN II-XII grossly intact. ABSENT: motor sensory deficit Psychiatric exam: PRESENT: appropriate affect, normal mood. ABSENT: homicidal ideation, suicidal ideation Skin exam: PRESENT: dry, intact, warm. ABSENT: cyanosis, rash Results Laboratory Results: 02/20/18 05:39 02/20/18 05:39 02/21/18 17:33 NT-Pro-B Natriuret Pep 517 H Impressions: Head CT 02/17/18 00:15 IMPRESSION: No acute findings. Chest X-Ray 02/21/18 00:00 IMPRESSION: NO ACUTE RADIOGRAPHIC FINDING IN THE CHEST. Assessment & Plan - Diagnosis (1) Community acquired bacterial pneumonia Is this a current diagnosis for this admission?: Yes Plan: Pneumonia versus atelectasis, empiric antibiotics, albuterol and Atrovent as well as incentive spirometry. Follow-up CBC and blood culture. (2) Urinary tract infection Qualifiers: Urinary tract infection type: site unspecified Hematuria presence: without hematuria Qualified Code(s): N39.0 - Urinary tract infection, site not specified Is this a current diagnosis for this admission?: Yes Plan: Empiric antibiotics initiated, follow-up CBC and urine culture. (3) Diabetes Qualifiers: Diabetes mellitus type: type 2 Diabetes mellitus manager long term care insulin use: unspecified alf insulin use status Diabetes mellitus complication status : with unspecified complications Qualified Code(s): E11.8 - Type 2 diabetes mellitus with unspecified complications Is this a current diagnosis for this admission?: Yes Plan: Home regiment with sliding scale coverage (4) Weakness Is this a current diagnosis for this admission?: Yes Plan: Orthostatic blood pressures and physical therapy evaluation. - Time Time Spent: 30 to 50 Minutes
--- NOTE | 2018-02-24 19:30 | PDOC PROGRESS REPORT ---
Subjective Progress Note for:: 02/23/18 Subjective:: Patient seems to be doing better with gradual improvement. Pt is denying any chest arm or neck discomfort. Patient denying any PND, orthopnea. Patient denied any sustained palpitations, dizziness, syncope, near syncope. Patient denying any fever chills. Patient denying any other significant discomfort. Patient is maintaining sinus rhythm. Review of systems: Rest review of systems negative. Medications: Medications have been reviewed. Reason For Visit: UTI Physical Exam Vital Signs: Temp Pulse Resp BP Pulse Ox 97.9 F 59 L 20 130/72 H 97 02/23/18 16:00 02/23/18 19:00 02/23/18 16:00 02/23/18 16:00 02/23/18 16:00 Intake & Output 02/22/18 02/23/18 02/24/18 06:59 06:59 06:59 Intake Total 380 1263 840 Balance 380 1263 840 Weight 85 kg 83 kg Exam: GENERAL: well-nourished and in no acute distress. Alert and oriented x2 HEAD: Atraumatic, normocephalic. EYES: Pupils equal round and reactive to light, extraocular movements intact, sclera anicteric, conjunctiva are normal. ENT: TMs normal, nares patent, oropharynx clear without exudates. Moist mucous membranes. No oral ulcerations or bleeding gums noted NECK: supple without lymphadenopathy. Trachea is central. No cervical or axillary lymphadenopathy noted. Carotids are 2+, JVD WNL LUNGS: Respiration seems nonlabored, no significant accessory muscle action noted. Breath sounds clear to auscultation bilaterally and equal noted. No wheezes rales or rhonchi noted. No significant dullness noted on percussion. CHEST: Palpation of the chest wall shows no significant chest wall tenderness. No other significant abnormalities noted. HEART: Lewis DIESEL ENGINE ASSEMBLER, No PSH, 1/6 CHUCK aortic area, 1/6 romo systolic murmur mitral area, no rubs, no gallops. ABDOMEN: Soft, no significant tenderness appreciated, normoactive bowel sounds. No guarding, no rebound. No rigidity noted . No masses appreciated. EXTREMITIES: Pedal pulses are 1-2+, no calf tenderness noted. No clubbing or cyanosis. negative pedal edema noted NEUROLOGICAL: Focused neurological exam showed no significant neurologic deficit. Normal speech, no focal weakness appreciated. PSYCH: Normal mood, normal affect. Judgment and insight not checked as patient has dementia. SKIN: No significant ecchymosis, skin is noted to be warm. MUSCULOSKELETAL EXAM: No significant acute joint swelling noted. Results Laboratory Results: 02/20/18 05:39 02/20/18 05:39 02/21/18 17:33 NT-Pro-B Natriuret Pep 517 H EKG Comments: Twelve-lead EKG from yesterday shows sinus rhythm. No acute ST-T wave changes noted. Telemetry strips reviewed showed sinus rhythm. Impressions: Head CT 02/17/18 00:15 IMPRESSION: No acute findings. Chest X-Ray 02/21/18 00:00 IMPRESSION: NO ACUTE RADIOGRAPHIC FINDING IN THE CHEST. Assessment & Plan - Diagnosis (1) Coronary artery disease Qualifiers: Coronary Disease-Associated Artery/Lesion type: [place] artery [place] vs. transplanted heart: [place] heart Associated angina: angina presence unspecified Qualified Code(s): I25.10 - Atherosclerotic heart disease of [place] coronary artery without angina pectoris Is this a current diagnosis for this admission?: Yes (2) Dyspnea Qualifiers: Dyspnea type: unspecified Qualified Code(s): R06.00 - Dyspnea, unspecified Is this a current diagnosis for this admission?: Yes (3) Fever Qualifiers: Fever type: unspecified Qualified Code(s): R50.9 - Fever, unspecified (4) Hypertension Qualifiers: Hypertension type: essential hypertension Qualified Code(s): I10 - Essential (primary) hypertension Is this a current diagnosis for this admission?: Yes (5) Urinary tract infection Qualifiers: Urinary tract infection type: site unspecified Hematuria presence: without hematuria Qualified Code(s): N39.0 - Urinary tract infection, site not specified Is this a current diagnosis for this admission?: Yes (6) Community acquired bacterial pneumonia Is this a current diagnosis for this admission?: Yes (7) Dyslipidemia Is this a current diagnosis for this admission?: Yes (8) Diabetes Qualifiers: Diabetes mellitus type: type 2 Diabetes mellitus watermelon harvesting supervisor insulin use: unspecified jail insulin use status Diabetes mellitus complication status : with unspecified complications Qualified Code(s): E11.8 - Type 2 diabetes mellitus with unspecified complications Is this a current diagnosis for this admission?: Yes (9) CHF (congestive heart failure) Qualifiers: Heart failure type: diastolic Heart failure chronicity: chronic Qualified Code(s): I50.32 - Chronic diastolic (congestive) heart failure Is this a current diagnosis for this admission?: No - Notes Notes: Twelve-lead EKG reviewed. 2D echo results reviewed with patient and his son. LVEF WNL. No significant stenotic or regurgitant valvular lesions noted. Diastolic dysfunctions were noted. Coronary artery disease: Patient currently seems symptomatically stable. Patient's medical regimen reviewed and is noted to be satisfactory. No medication changes performed today. Dyspnea: Possibly related to pneumonia. BNP level came back mildly elevated. Symptom review suggest this is a chronic problem therefore patient has chronic diastolic CHF. Continue Lasix at 20 mg p.o. daily. Chronic diastolic CHF: Currently seems compensated by clinical exam. Continue Lasix at 20 mg p.o. daily. Fever: Currently could be related to UTI versus pneumonia. Patient on antibiotic therapy. Hypertension: Currently blood pressure well controlled. Blood pressure goal is 140/90 or less but could be more liberal in this elderly patient with dementia. Hyperlipidemia: Continue Pravachol therapy. Community-acquired pneumonia: Continue with antibiotic therapy. Discussed that patient would not be a candidate for ischemia evaluation due to dementia unless patient has significant chest pains which are uncontrolled with medical management. Patient son was in the room and this was discussed. At this point will sign off. Patient can follow-up with his primary care physician and traditional maori health practitioner after discharge. - Time Time with patient: 15-25 minutes - CODE STATUS was discussed, patient remains full code. Surrogate decision-maker son. Multiple medical problems were addressed. More than 50% of the time spent coordinating care, discussing management plans with involved caregivers. Management plans discussed with involved personnels. Medical decision making was of moderate to high complexity , patient's has multiple comorbidities.
--- NOTE | 2018-02-24 21:45 | PDOC PROGRESS REPORT ---
Subjective Progress Note for:: 02/24/18 Subjective:: ROSANNA SHUKLA is a 77 year old male with a PMH of HTN, hypothyroidism, type 2 diabetes mellitus, and dementia who was admitted on02/17/2018 for weakness, increased confusion, and UTI. The patient was seen this morning on rounds. He is found resting in bed on room air. He states that he is feeling very well today, he has no complaints. The patient's son is at the bedside and would like to know when the patient will be going to acute rehab. Currently awaiting placement. Reason For Visit: UTI Physical Exam Vital Signs: Temp Pulse Resp BP Pulse Ox 97.6 F 63 20 134/73 H 97 02/24/18 19:30 02/24/18 19:30 02/24/18 19:30 02/24/18 19:30 02/24/18 19:30 Intake & Output 02/23/18 02/24/18 02/25/18 06:59 06:59 06:59 Intake Total 1263 1242 10 Balance 1263 1242 10 Weight 83 kg 82.9 kg General appearance: PRESENT: no acute distress Head exam: PRESENT: atraumatic Eye exam: PRESENT: EOMI Mouth exam: PRESENT: moist Neck exam: PRESENT: full ROM Respiratory exam: PRESENT: symmetrical, unlabored Cardiovascular exam: PRESENT: +S1, +S2 Pulses: PRESENT: normal radial pulses, normal dorsalis pedis pul GI/Abdominal exam: PRESENT: normal bowel sounds, soft. ABSENT: tenderness Rectal exam: PRESENT: deferred Extremities exam: PRESENT: joint swelling. ABSENT: full ROM - partial ROM Musculoskeletal exam: ABSENT: ambulatory - requires assistance getting in/out of bed Neurological exam: PRESENT: alert, awake, oriented to person, oriented to place , oriented to time Psychiatric exam: PRESENT: appropriate affect Skin exam: PRESENT: normal color Results Laboratory Results: 02/20/18 05:39 02/20/18 05:39 02/21/18 17:33 NT-Pro-B Natriuret Pep 517 H Impressions: Head CT 02/17/18 00:15 IMPRESSION: No acute findings. Chest X-Ray 02/21/18 00:00 IMPRESSION: NO ACUTE RADIOGRAPHIC FINDING IN THE CHEST. Status: Imported from PACS Assessment & Plan - Diagnosis (1) Urinary tract infection Qualifiers: Urinary tract infection type: site unspecified Hematuria presence: without hematuria Qualified Code(s): N39.0 - Urinary tract infection, site not specified Is this a current diagnosis for this admission?: Yes Plan: The patient was admitted with a low-grade fever, family reported weakness and increased confusion. Urinalysis positive for UTI. WBCs are normal. Blood cultures: 1 of 2 bottles with contaminant, second bottle has no growth to date Repeat blood cultures no growth to date Urine culture positive for viridans strep -possibly skin ismael Admit to medical floor Patient has completed eighth 3 day course of Rocephin, and 5th day course of azithromycin. At this time, the patient remains afebrile and nontoxic appearing. (2) Community acquired bacterial pneumonia Is this a current diagnosis for this admission?: Yes Plan: CXR upon admission showed small multifocal right-sided pneumonia. Repeat CXR 02/22 is normal. Cultures and antibiotics as above. As needed nebulizer treatments Incentive spirometry to bedside. Encourage mobility. (3) Hypertension Qualifiers: Hypertension type: essential hypertension Qualified Code(s): I10 - Essential (primary) hypertension Is this a current diagnosis for this admission?: Yes Plan: Resume home medications. Tolerating cardiac diet. Monitor daily weights. Cardiology consulted. Echocardiogram completed - sclerotic mitral valve but no evidence of mitral valve stenosis. trace mitral valve regurgitation. (4) Weakness Is this a current diagnosis for this admission?: Yes Plan: PT/OT have been consulted. The patient has not ambulated since admission. Son reports that the patient is normally able to ambulate with a walker Patient's son would like to send patient to acute rehab/SNF with the goal of returning home (5) Diabetes Qualifiers: Diabetes mellitus type: type 2 Diabetes mellitus jail insulin use: unspecified jail insulin use status Diabetes mellitus complication status : with unspecified complications Qualified Code(s): E11.8 - Type 2 diabetes mellitus with unspecified complications Is this a current diagnosis for this admission?: Yes Plan: Continue Amaryl Consistent carb diet. Accu-Cheks before meals at bedtime. Humalog for sliding scale coverage - Time Time Spent with patient: 15-24 minutes Anticipated discharge: Acute Rehab - Inpatient Certification Based on my medical assessment, after consideration of the patient's comorbidities, presenting symptoms, or acuity I expect that the services needed warrant INPATIENT care.: Yes I certify that my determination is in accordance with my understanding of Medicare's requirements for reasonable and necessary INPATIENT services [42 CFR 412.3e].: Yes Medical Necessity: Risk of Complication if Not Cared For in Hospital - Plan Summary Plan Summary: Discharge to acute rehab
[2018-02-25] MEDS: LEVOTHYROXINE SODIUM 0.025 MG TABLET PO SCH (05:09)
[2018-02-25] MEDS: HEPARIN SOD (PORCINE) 5,000 UNIT/ML 1 ML SYRINGE SUBCUT SCH ×2 (05:09→13:40)
[2018-02-25] MEDS: GLIMEPIRIDE 1 MG TABLET PO SCH (08:44)
[2018-02-25] MEDS: FUROSEMIDE 20 MG TABLET PO SCH (08:44)
--- NOTE | 2018-02-25 09:08 | PDOC DISCHARGE SUMMARY ---
General - Admit/Disc Date/PCP Admission Date/Primary Care Provider: 02/17/18 15:15 Discharge Date: 02/25/18 - Discharge Diagnosis (1) Urinary tract infection Is this a current diagnosis for this admission?: Yes Summary: The patient was admitted with a low-grade fever, family reported weakness and increased confusion. Urinalysis positive for UTI. WBCs are normal. Blood cultures: 1 of 2 bottles with contaminant, second bottle has no growth to date Repeat blood cultures no growth to date Urine culture positive for viridans strep -possibly skin ismael Patient has completed 3 day course of Rocephin, and 5 day course of azithromycin. At this time the patient remains afebrile and nontoxic. (2) Community acquired bacterial pneumonia Is this a current diagnosis for this admission?: Yes Summary: CXR upon admission showed small multifocal right-sided pneumonia. Repeat CXR 02/22 normal. Cultures and antibiotics as above. (3) Hypertension Is this a current diagnosis for this admission?: Yes Summary: Echocardiogram completed, shows sclerotic mitral valve but no evidence of mitral valve stenosis. Trace mitral valve regurgitation. Continue Coreg, Plavix, Vasotec, Lasix postdischarge (4) Weakness Is this a current diagnosis for this admission?: Yes Summary: The patient has been relatively immobile for the last 5 days. PT OT have been consulted. They state that the patient is unable to ambulate due to bilateral lower extremity weakness. According to the son, the patient is normally able to ambulate with a walker. The son is requesting to send the patient to acute rehab with the ultimate goal of returning home (5) Diabetes Is this a current diagnosis for this admission?: Yes Summary: Patient currently taking Amaryl for diabetes. Continue post discharge. - Additional Information Resuscitation Status: Full Code Home Medications: Amlodipine Besylate [Norvasc 10 mg Tablet] 10 mg PO DAILY 02/17/18 Carvedilol [Coreg 12.5 mg Tablet] 12.5 mg PO Q12 02/17/18 Clopidogrel Bisulfate [Plavix 75 mg Tablet] 75 mg PO DAILY 02/17/18 Donepezil HCl [Aricept 5 mg Tablet] 5 mg PO QHS 02/17/18 Enalapril Maleate [Vasotec 20 mg Tablet] 20 mg PO DAILY 02/17/18 Furosemide [Lasix 20 mg Tablet] 20 mg PO QAM 02/17/18 Glimepiride [Amaryl] 2 mg PO QAM 02/17/18 Levothyroxine Sodium [Synthroid 0.025 mg Tablet] 25 mcg PO Q6AM 02/17/18 Potassium Chloride [Klor-Con 10 Meq Tablet.sa] 10 meq PO DAILY 02/17/18 Pravastatin Sodium [Pravachol] 80 mg PO QHS 02/17/18 History of Present Illness History of Present Illness: ROSANNA SHUKLA is a 77 year old male with a past medical history of vascular dementia, diabetes, coronary artery disease status post stenting of unknown artery, BPH with recurrent UTI. He presents with 48 hours of fatigue and 12 hours of loose stools followed by 4 hours of fever of 101.0. Patient denies dysuria, polyuria, abdominal pain, shortness of breath, cough, chest pain or palpitations. In the emergency room he is found to have an x-ray suggestive of pneumonia versus atelectasis and a urinalysis suggestive of UTI versus colonization. He receives empiric antibiotics and IV fluid challenge referred to the hospitalist for admission. Hospital Course Hospital Course: As above Physical Exam Vital Signs: Temp Pulse Resp BP Pulse Ox 97.6 F 56 L 16 125/64 98 02/25/18 07:18 02/25/18 07:18 02/25/18 07:18 02/25/18 07:18 02/25/18 07:18 Intake & Output 02/24/18 02/25/18 02/26/18 06:59 06:59 06:59 Intake Total 1242 302 Balance 1242 302 Weight 82.9 kg 84.6 kg General appearance: PRESENT: no acute distress Eye exam: PRESENT: PERRLA Mouth exam: PRESENT: moist Neck exam: PRESENT: full ROM Respiratory exam: PRESENT: symmetrical, unlabored Cardiovascular exam: PRESENT: +S1, +S2 Pulses: PRESENT: normal radial pulses, normal dorsalis pedis pul GI/Abdominal exam: PRESENT: normal bowel sounds, soft. ABSENT: tenderness Rectal exam: PRESENT: deferred Extremities exam: PRESENT: joint swelling. ABSENT: full ROM Musculoskeletal exam: ABSENT: ambulatory - Weakness to bilateral lower extremities. Patient is unable to ambulate. Per son, the patient is normally able to ambulate with a walker, full ROM Neurological exam: PRESENT: alert, awake, oriented to person, abnormal gait Psychiatric exam: PRESENT: appropriate affect Skin exam: PRESENT: normal color Results Laboratory Results: 02/20/18 05:39 02/20/18 05:39 02/21/18 17:33 NT-Pro-B Natriuret Pep 517 H Impressions: Head CT 02/17/18 00:15 IMPRESSION: No acute findings. Chest X-Ray 02/21/18 00:00 IMPRESSION: NO ACUTE RADIOGRAPHIC FINDING IN THE CHEST. Status: Imported from PACS Qualifiers - * P[place]INT BEING DISCHARGED WITH ANY OF THE FOLLOWING DIAGNOSIS?: No Plan Discharge Plan: Discharge to acute rehab
[2018-02-25] MEDS: AMLODIPINE BESYLATE 10 MG TABLET PO SCH (10:08)
[2018-02-25] MEDS: POTASSIUM CHLORIDE 10 MEQ TABLET.SA PO SCH (10:09)
[2018-02-25] MEDS: ENALAPRIL MALEATE 10 MG TABLET PO SCH (10:09)
[2018-02-25] MEDS: CLOPIDOGREL BISULFATE 75 MG TABLET PO SCH (10:09)
[2018-02-25] MEDS: CARVEDILOL 12.5 MG TABLET PO SCH (10:09)
[2018-02-25] MEDS ORDERED: ONDANSETRON HCL INJ/PF 4 MG/2 ML SDV IV PRN (15:00)
[2018-02-25 15:19] VITALS: BP 118/68
== END 2018-02-25 14:09 | DRG 689 ==
LOC: ER 21:45 → EH 02-17 03:52 → 4S 02-17 05:45 → OBSVTOIN 02-17 15:15 → 4W 02-22 08:27
PROVIDERS: ADMIT Internal Medicine; ATTEND Internal Medicine
DX: N39.0 Urinary tract infection, site not specified (principal); J18.9 Pneumonia, unspecified organism; I50.32 Chronic diastolic (congestive) heart failure; E11.9 Type 2 diabetes mellitus without complications; B95.4 Other streptococcus as the cause of diseases classified elsewhere; F01.50 Vascular dementia, unspecified severity, without behavioral disturbance, psychotic disturbance, mood disturbance, and anxiety; E03.9 Hypothyroidism, unspecified; N40.0 Benign prostatic hyperplasia without lower urinary tract symptoms; I25.10 Atherosclerotic heart disease of native coronary artery without angina pectoris; I10 Essential (primary) hypertension; I25.2 Old myocardial infarction; Z95.5 Presence of coronary angioplasty implant and graft; Z79.01 Long term (current) use of anticoagulants
CPT/HCPCS: 36415; 70450; 71045; 80048; 80053; 81001; 82550; 82553; 82803; 82962; 83605; 83880; 84484; 85025; 85610; 87040; 87077; 87086; 93005; 93010; 93306; 96365; 96366; 99285; G8978-GP; G8979-GP; J0360; J0456; J0696; J1644; J1815; J1956; J3490; J7030; J7060